=== PATIENT | female | born 1955 | race Caucasian/White ===

== ENCOUNTER 2023-01-20 07:41 | Inpatient (IN) | payer OTHER ==
[~2023-01-20] VITALS: Ht 170.2 cm; Wt 110.7 kg
[2023-01-20] VITALS (7 sets, daily range): BP systolic 120–123; BP diastolic 67–69; PULSE 65–98; RESP 18–22; TEMP 97.1–97.8; O2SAT 95–100
[~2023-01-20 07:41] MED LIST: ALBU108A5 IN; ALEN70TA74 PO; CHOL500040 PO; DIPH25CA66 PO; DUPI1INJ SC; FLUT1AER17 IN; GABA-1250 PO; HYDR-4072 PO; LEVA0.6320 IN; PRAV20TA3 PO; TRAZ-228 PO
[2023-01-20] MEDS ORDERED: TRANEXAMIC ACID 20 ML ONE (07:58)
[2023-01-20] MEDS ORDERED: LIDOCAINE 1%-Mpf/Epinephrine 1:200,000 30ml VIAL ONE (07:59)
[2023-01-20] MEDS ORDERED: ceFAZolin 1GM/50ML 100 ML IV ONE (08:00)
[2023-01-20] MEDS ORDERED: ROCURONIUM 10MG/ML 10ML VIAL IV ONE (08:04)
[2023-01-20] MEDS ORDERED: SUCCINYLCHOLINE CHLORIDE 20 MG/ML 10ML VIAL IV ONE (08:04)
[2023-01-20] MEDS ORDERED: DOXAPRAM HCL 20 MG/ML 20ML VIAL INJ IV ONE (08:04)
[2023-01-20] MEDS ORDERED: fentaNYL CITRATE 100 MCG/2 ML VL ONE (08:08)
[2023-01-20] MEDS ORDERED: GLYCOPYRROLATE 0.2 MG/ML 1ML VIAL ONE (08:08)
[2023-01-20] MEDS ORDERED: DexAMETHasone SOD PHOS 10MG/1ML VIAL INJ ONE (08:08)
[2023-01-20] MEDS ORDERED: NEOSTIGMINE 1 MG/ML INJ (10mg/10ML VIAL) ONE (08:08)
[2023-01-20] MEDS ORDERED: HYDROCORTISONE SOD SUCC 100 MG/2ML INJ VIAL ONE (08:08)
[2023-01-20] MEDS ORDERED: PROPOFOL 10 MG/ML 20 ML IV ONE ×2 (08:08→10:29)
[2023-01-20] MEDS ORDERED: ONDANSETRON HCL 4 MG/2 ML VIAL ONE (08:08)
[2023-01-20] MEDS ORDERED: HYDROmorphone HCL 2 MG/ML VL/or syr ONE (08:08)
[2023-01-20] MEDS ORDERED: SODIUM CHLORIDE LOCK 30 ML ONE (08:08)
[2023-01-20] MEDS ORDERED: MIDAZOLAM HCL 2MG/2ML 2ml VIAL (1mg/ml) ONE ×2 (08:08→09:35)
[2023-01-20] MEDS ORDERED: ALBUTEROL SULF 2.5 MG/0.5ML(0.5%) NEB SOLN NEB ONE (08:15)
[2023-01-20] MEDS ORDERED: IPRATROPIUM BROM 0.5 MG/2.5ML INH SOL NEB ONE (08:15)
[2023-01-20] MEDS ORDERED: IPRATROPIUM BROM 0.5 MG/2.5ML INH SOL ONE (08:37)
[2023-01-20] MEDS ORDERED: ALBUTEROL SULF 2.5 MG/0.5ML(0.5%) NEB SOLN ONE (08:37)
[2023-01-20] MEDS: D5W/SOD CHLO 0.9% 1,000 ML IV SCH ×2 (12:45→16:39)
[2023-01-20] MEDS ORDERED: NITROGLYCERIN 0.4 MG SL TAB SL PRN (12:45)
[2023-01-20] MEDS ORDERED: ACETAMINOPHEN 325 MG TAB PO PRN (12:45)
[2023-01-20] MEDS: ceFAZolin 1GM/50ML 50 ML IV SCH ×2 (12:45→22:13)
[2023-01-20] MEDS ORDERED: MORPHINE SULFATE INJ 2 MG/ml SYRG IV PRN ×2 (12:45→13:00)
[2023-01-20] MEDS ORDERED: HYDROmorphone HCL 2 MG/ML VL/or syr IV PRN (13:00)
[2023-01-20] MEDS ORDERED: METOCLOPRAMIDE HCL 5MG/ml INJ 2ml VIAL IV PRN (13:00)
[2023-01-20] MEDS: HYDROmorphone HCL 2 MG/ML VL/or syr IV PRN ×2 (13:22→13:41)
[2023-01-20] MEDS: CYCLOBENZAPRINE HCL 10 MG TAB PO SCH ×2 (16:16→22:12)
[2023-01-20] MEDS: HYDROcodone-ACET 10/325MG TAB PO PRN ×2 (16:17→23:57)
[2023-01-20] MEDS: MORPHINE SULFATE INJ 2 MG/ml SYRG IV PRN ×2 (17:51→22:13)
[2023-01-20] MEDS: [UNRECOGNIZED DRUG - OTHER] IN SCH (22:00)
[2023-01-20] MEDS: DOCUSATE SOD 100 MG CAP PO SCH (22:12)
[2023-01-20] MEDS: ALBUTEROL SULFATE IN SCH (22:19)
[2023-01-21] VITALS (7 sets, daily range): BP systolic 96–132; BP diastolic 54–71; PULSE 83–104; RESP 17–20; TEMP 98.1–98.5; O2SAT 93–99
[2023-01-21] MEDS: ONDANSETRON HCL 4 MG/2 ML VIAL IV PRN ×2 (03:04→18:35)
[2023-01-21] MEDS: ALBUTEROL SULFATE IN SCH ×4 (06:47→21:12)
[2023-01-21] MEDS: CYCLOBENZAPRINE HCL 10 MG TAB PO SCH ×3 (06:47→21:07)
[2023-01-21] MEDS: HYDROcodone-ACET 10/325MG TAB PO PRN ×3 (06:47→18:17)
[2023-01-21] MEDS: DOCUSATE SOD 100 MG CAP PO SCH ×2 (10:25→21:07)
[2023-01-21] MEDS: D5W/SOD CHLO 0.9% 1,000 ML IV SCH ×2 (10:28→18:45)
[2023-01-21] MEDS: [UNRECOGNIZED DRUG - OTHER] IN SCH (21:07)
[2023-01-22] VITALS (10 sets, daily range): BP systolic 103–114; BP diastolic 55–69; PULSE 65–120; RESP 17–20; TEMP 97.8–99.2; O2SAT 93–98
[2023-01-22] MEDS: D5W/SOD CHLO 0.9% 1,000 ML IV SCH ×2 (04:45→17:58)
[2023-01-22] MEDS: ALBUTEROL SULFATE IN SCH ×2 (06:00→12:00)
[2023-01-22] MEDS: CYCLOBENZAPRINE HCL 10 MG TAB PO SCH ×3 (06:00→22:54)
[2023-01-22] MEDS: DOCUSATE SOD 100 MG CAP PO SCH ×2 (10:00→22:54)
[2023-01-22] MEDS ORDERED: AMIODARONE BOLUS KIT 100 ML IV ONE (14:45)
[2023-01-22] MEDS ORDERED: AMIODARONE 450mg/250ml AE 250 ML IV SCH ×2 (15:00→21:00)
[2023-01-22] MEDS: LEVALBUTEROL HCL 1.25 MG/3 ML NEB NEB PRN ×2 (15:07→20:43)
[2023-01-22 15:58] LABS: Basophils # (auto) 0.2 10 ^3/uL (0-0.2); Basophils % (auto) 1.3 % (0.0-2.0); Eosinophils # (auto) 0.2 10 ^3/uL (0-0.8); Eosinophils % (auto) 1.4 % (0.0-7.0); Hematocrit 31.6 % (36.0-46.0); Hemoglobin 10.6 g/dL (12.2-16.2); Lymphocytes # (auto) 3.1 10 ^3/uL (0.4-5.4); Lymphocytes % (auto) 23.4 % (10.0-50.0); Mean Corpuscular Hgb Conc. 33.4 g/dL (32.0-36.0); Mean Corpuscular Volume 89.9 fL (80.0-100.0); Monocytes # (auto) 1.4 10 ^3/uL (0-1.3); Monocytes % (auto) 10.3 % (0.0-12.0); Neutrophils # (auto) 8.5 10 ^3/uL (1.6-8.6); Neutrophils % (auto) 63.6 % (37.0-80.0); Nucleated Red Blood Cells % 0.1 %; Red Blood Cells 3.52 10^6/uL (4.0-5.20); Red Cell Distribution Width 14.3 % (11.8-14.3); White Blood Cell 13.3 10^3/uL (4.4-10.8)
[2023-01-22 16:27] LABS: Alanine Aminotransferase 22 U/L (7-40); Albumin 3.4 g/dL (3.2-4.8); Alkaline Phosphatase 78 U/L (46-116); Anion Gap 5 (5-15); Aspartate Aminotransferase 31 U/L (13-40); BUN/Creatinine Ratio 10.4 (10.0-20.0); Bilirubin, Total 0.7 mg/dL (0.2-1.0); Blood Urea Nitrogen 7 mg/dL (9-23); Calcium 8.1 mg/dL (8.5-10.1); Carbon Dioxide 24 mmol/L (20-30); Chloride 102 mmol/L (98-107); Cholesterol 120 mg/dL (< 200); Glucose 127 mg/dL (74-106); HDL Cholesterol 41 mg/dL (40-59); LDL Cholesterol 61 mg/dL (< 100); Potassium 3.6 mmol/L (3.5-5.1); Sodium 131 mmol/L (136-145); Triglycerides 89 mg/dL (< 150)
[2023-01-22 16:28] LABS: Total Protein 5.8 g/dL (5.7-8.2)
[2023-01-22 17:48] LABS: Magnesium 1.6 mg/dL (1.6-2.6)
[2023-01-22] MEDS: HYDROcodone-ACET 10/325MG TAB PO PRN ×2 (17:56→22:54)
[2023-01-22] MEDS ORDERED: LEVALBUTEROL HCL 1.25 MG/3 ML NEB NEB SCH (18:00)
[2023-01-22] MEDS ORDERED: FUROSEMIDE 40 MG/4 ML VIAL IV ONE (18:15)
[2023-01-22] MEDS ORDERED: MAGNESIUM SULFATE 1GM/100ML 100 ML IV ONE (18:15)
[2023-01-22] MEDS ORDERED: POTASSIUM CHL 20 Meq TABLET PO ONE (18:15)
[2023-01-22] MEDS: ONDANSETRON HCL 4 MG/2 ML VIAL IV PRN (18:43)
[2023-01-23] VITALS (8 sets, daily range): BP systolic 102–110; BP diastolic 47–63; PULSE 80–100; RESP 18–20; TEMP 36.6; O2SAT 93–96
[2023-01-23] MEDS: D5W/SOD CHLO 0.9% 1,000 ML IV SCH ×3 (00:45→20:45)
[2023-01-23 06:03] LABS: Chloride 101 mmol/L (98-107); Potassium 4.2 mmol/L (3.5-5.1); Sodium 131 mmol/L (136-145)
[2023-01-23 06:04] LABS: Anion Gap 9 (5-15); Carbon Dioxide 21 mmol/L (20-30)
[2023-01-23 06:05] LABS: Calcium 8.2 mg/dL (8.7-10.4)
[2023-01-23 06:09] LABS: Glucose 130 mg/dL (74-106)
[2023-01-23 06:10] LABS: BUN/Creatinine Ratio 11.6 (10.0-20.0); Blood Urea Nitrogen 8 mg/dL (9-23); Magnesium 2.2 mg/dL (1.6-2.6)
[2023-01-23] MEDS: HYDROcodone-ACET 10/325MG TAB PO PRN ×3 (06:36→21:52)
[2023-01-23] MEDS: CYCLOBENZAPRINE HCL 10 MG TAB PO SCH ×3 (06:36→21:52)
[2023-01-23 07:43] LABS: Basophils # (auto) 0 10 ^3/uL (0-0.2); Basophils % (auto) 0.3 % (0.0-2.0); Eosinophils # (auto) 0.3 10 ^3/uL (0-0.8); Eosinophils % (auto) 2.7 % (0.0-7.0); Hematocrit 41.7 % (36.0-46.0); Hemoglobin 13.4 g/dL (12.2-16.2); Lymphocytes # (auto) 2.5 10 ^3/uL (0.4-5.4); Lymphocytes % (auto) 26.1 % (10.0-50.0); Mean Corpuscular Hemoglobin 30.4 pg (28.0-32.0); Mean Corpuscular Hgb Conc. 32.2 g/dL (32.0-36.0); Mean Corpuscular Volume 94.3 fL (80.0-100.0); Monocytes # (auto) 1.2 10 ^3/uL (0-1.3); Monocytes % (auto) 12.3 % (0.0-12.0); Neutrophils # (auto) 5.5 10 ^3/uL (1.6-8.6); Neutrophils % (auto) 58.6 % (37.0-80.0); Nucleated Red Blood Cells % 0.1 %; Red Blood Cells 4.42 10^6/uL (4.0-5.20); Red Cell Distribution Width 15.6 % (11.8-14.3); White Blood Cell 9.5 10^3/uL (4.4-10.8)
[2023-01-23] MEDS: AMIODARONE HCL 200 MG TAB PO SCH ×2 (11:33→21:52)
[2023-01-23] MEDS: DOCUSATE SOD 100 MG CAP PO SCH ×2 (11:34→21:52)
[2023-01-23] MEDS: TRELEGY IN SCH (13:07)
[2023-01-24] VITALS (7 sets, daily range): BP systolic 101–123; BP diastolic 55–73; PULSE 91–101; RESP 17–20; TEMP 37.2–37.3; O2SAT 93–94
[2023-01-24] MEDS: CYCLOBENZAPRINE HCL 10 MG TAB PO SCH ×2 (06:16→14:21)
[2023-01-24] MEDS: HYDROcodone-ACET 10/325MG TAB PO PRN (06:20)
[2023-01-24] MEDS: D5W/SOD CHLO 0.9% 1,000 ML IV SCH (06:42)
[2023-01-24] MEDS: AMIODARONE HCL 200 MG TAB PO SCH (10:19)
[2023-01-24] MEDS: DOCUSATE SOD 100 MG CAP PO SCH (10:19)
[2023-01-24] MEDS: TRELEGY IN SCH (10:20)
[2023-01-24] MEDS ORDERED: AMIO200T33 PO (12:23)
== END 2023-01-24 16:00 | disposition home health service (06) | DRG 454 ==
LOC: SUR 07:41 → TELE 12:41 → TELE-CENTR 14:48
PROVIDERS: ADMIT Orthopaedic Surgery; ATTEND Orthopaedic Surgery
PROC: 0SG10AJ Fusion of 2 or more Lumbar Vertebral Joints with Interbody Fusion Device, Posterior Approach, Anterior Column, Open Approach (ICD-10-PCS; principal; 2023-01-22)
PROC: 0SG1071 Fusion of 2 or more Lumbar Vertebral Joints with Autologous Tissue Substitute, Posterior Approach, Posterior Column, Open Approach (ICD-10-PCS; 2023-01-22)
PROC: 01NB0ZZ Release Lumbar Nerve, Open Approach (ICD-10-PCS; 2023-01-22)
PROC: 00NY0ZZ Release Lumbar Spinal Cord, Open Approach (ICD-10-PCS; 2023-01-22)
PROC: 4A11X4G Monitoring of Peripheral Nervous Electrical Activity, Intraoperative, External Approach (ICD-10-PCS; 2023-01-22)
DX: M48.062 Spinal stenosis, lumbar region with neurogenic claudication (principal); I48.20 Chronic atrial fibrillation, unspecified; E66.01 Morbid (severe) obesity due to excess calories; E78.5 Hyperlipidemia, unspecified; F51.04 Psychophysiologic insomnia; I73.9 Peripheral vascular disease, unspecified; J44.89 Other specified chronic obstructive pulmonary disease; M54.16 Radiculopathy, lumbar region; Z87.891 Personal history of nicotine dependence; M81.0 Age-related osteoporosis without current pathological fracture; G89.29 Other chronic pain; Z88.8 Allergy status to other drugs, medicaments and biological substances; Z68.38 Body mass index [BMI] 38.0-38.9, adult
CPT/HCPCS: 36415; 71045; 72100; 76000; 80048; 80053; 80061; 83735; 83880; 84443; 84484; 85025; 86850; 86900; 86901; 93306; 94640; 97110; 97116; 97163; 97530; G0378; J0330; J0690; J1100; J2250; J2405; J2704; J7042